=== PATIENT | female | born 1970 | race Caucasian/White ===

== ENCOUNTER 2016-07-25 10:44 | Emergency (ER) | payer OTHER ==
[~2016-07-25] VITALS: Ht 165.1 cm; Wt 136.1 kg
[~2016-07-25 10:44] MED LIST: ABILIFY 2MG2 MG PO; ABILIFY 5MG5 MG PO; ALLEGRA180 MG PO; CABERGOLINE PO; HYDROXYZINE50 MG PO; KLONOPIN0.5 MG PO; LATUDA20 MG PO; LEVOTHROID SO0.05 MG PO; PREDNISONE10 MG PO; PREDNISONE50 MG PO; PROZAC 10MG10 MG PO; ZYRTEC ALLERGY10 MG PO
[2016-07-25 11:14] VITALS: BP 133/78
--- NOTE | 2016-07-25 11:24 | ED INFLUENZA/URI COMPLAINT ---
History of Present Illness General Chief Complaint: General Adult Stated Complaint: ?BRONCHITIS Source: patient Exam Limitations: no limitations Vital Signs & Intake/Output Vital Signs & Intake/Output Vital Signs Date Time Temp Pulse Resp B/P Pulse O2 O2 Flow FiO2 Ox Delivery Rate 07/25 1143 96 07/25 1114 96.7 77 20 133/78 95 Room Air Room Air Allergies Coded Allergies: amoxicillin (Intermediate, HIVES 11/01/15) Cephalosporins (HIVES 11/01/15) Penicillins (HIVES 11/01/15) codeine (HIVES 11/01/15) sulfamethoxazole (From BACTRIM) (HIVES 11/01/15) trazodone (HIVES? 11/01/15) trimethoprim (From BACTRIM) (HIVES 11/01/15) venom-honey bee (BEE VENOM (HONEY BEE)) (SWELLING 11/01/15) Reconcile Medications Albuterol Sulfate 2.5 MG/3 ML (0.083 %) VIAL.NEB 1 Vial INH/NIKO Q4P PRN DYSPNEA Aripiprazole (Abilify) 5 MG TAB 1 TAB PO QAM MENTAL HEALTH (Reported) Aripiprazole (Abilify) 2 MG TAB 1 TAB PO BID MENTAL HEALTH (Reported) Cabergoline 0.5 MG TAB 0.5 TAB PO QMON PITUITARY ADENOMA (Reported) CETIRIZINE HCL (Zyrtec) 10 MG SGL 2 CAP PO QPM ALLERGIES (Reported) Clonazepam (Klonopin) 0.5 MG TAB 1 TAB PO BID ANXIETY Escitalopram Oxalate 10 MG TABLET 1 TAB PO DAILY MENTAL HEALTH (Reported) Fexofenadine Hydrochloride (Katty) 180 MG TAB 2 TAB PO QAM ALLERGIES ( Reported) Fluoxetine HCl (Prozac 10mg) 10 MG CAP 20 MG PO DAILY DEPRESSION (Reported) Hydroxyzine Hydrochloride (Hydroxyzine) 50 MG TAB 1 TAB PO 4 TIMES/DAY PRN ALLERGIC REACTION Levofloxacin (Levaquin) 500 MG TABLET 1 TAB PO DAILY PNEUMONIA Levothyroxine Sodium (Synthroid) 75 MCG TABLET 1 TAB PO DAILY AC THYROID ( Reported) LURASIDONE HCL (Latuda) 20 MG TAB 1 TAB PO QPM MENTAL HEALTH (Reported) Prednisone 10 MG TAB STEROID TAPER (Reported) Triage Note: PT TO ED S/P NASAL CONGESTION, COUGH YELLOW/GREEN SPUTUM, WENT TO [facility]ALK[facility] CLIN[facility] ON WED GIVEN AN INHALER, WHICH SLIGHT IMPROVEMENT. Triage Nurses Notes Reviewed? yes Onset: Gradual Duration: day(s): (FEW) Timing: recent history Severity: moderate No Modifying Factors: none Associated Symptoms: cough, shortness of breath, sinus infection HPI: This is a 46-year-old female who presents to the ER chief complaint of cough, shortness of breath, sputum production. She was seen at an urgent care a few days ago and diagnosed with bronchitis and put on an inhaler. She has used her nebulizer machine a few times at home with relief but states that she feels she should've been put on an antibiotic. Complains of yellow phlegm. Complains of subjective fevers and chills. Past History Travel History Traveled to [place] past 21 day No Medical History Any Pertinent Medical History? 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 No Review of Systems Review of Systems Constitutional: Reports: chills, fever. EENTM: Reports: nasal congestion. Respiratory: Reports: cough, short of breath, sputum production. Cardiovascular: Reports: see HPI (chest tightness). GI: Denies: abdominal pain. Genitourinary: Reports: no symptoms. Musculoskeletal: Reports: no symptoms. Skin: Reports: no symptoms. Neurological/Psychological: Reports: no symptoms. Hematologic/Endocrine: Denies: bruising, bleeding, polyuria, polydipsia. Immunologic/Allergic: Denies: splenectomy. All Other Systems: Reviewed and Negative Physical Exam Physical Exam General Appearance: well developed/nourished, alert, awake, anxious, mild distress, obese Head: atraumatic, normal appearance Eyes: Bilateral: normal appearance, PERRL, EOMI. Ears, Nose, Throat: normal ENT inspection, moist mucous membrane, hearing grossly normal, Tympanic normal, pharynx normal Neck: normal inspection, supple, full range of motion Respiratory: chest non-tender, no respiratory distress, decreased breath sounds, wheezing Cardiovascular: regular rate/rhythm Peripheral Pulses: 2+ radial (R), 2+ radial (L) Core Measures Severe Sepsis Present: No Septic Shock Present: No Progress Differential Diagnosis: ASTHMA, BRONCHITIS, uri, PNEUMONIA, SINUSITIS Plan of Care: Orders Procedure Date/time Status RT ED ORDERS 07/25 1131 Active XRY-CHEST XRAY, PA AND LATERAL 07/25 1131 Active Patient improved after DuoNeb. Chest x-ray within normal limits. ([facility] MARKS,TERRELL) Diagnostic Imaging: Viewed by Me: Radiology Read. Discussed w/RAD: Radiology Read. CXR Impression: PATIENT: BHARATH BARBA PRESENT AGE: 46 PATIENT ACCOUNT NO: [id number] : 68 LOCATION: [facility] ORDERING PHYSICIAN: TERRELL SIMON MD SERVICE DATE: 07/25/16 EXAM TYPE: RAD - XRY-CHEST XRAY , PA AND LATERAL EXAMINATION: XR CHEST CLINICAL INFORMATION: Cough and chest tightness COMPARISON: 04/14/2012. TECHNIQUE: PA and lateral views of the chest were obtained. FINDINGS: No significant abnormality is noted involving the heart , lungs, mediastinum, bony thorax, or soft tissues. IMPRESSION: Clear lungs. No focal pneumonia. DICTATED BY: BELEN MEI MD DATE/TIME DICTATED:07/25/161322 STORE SALES LEADER:ROSA ELENA DATE/TIME TRANSCRIBED:07/25/161322 CONFIDENTIAL, DO NOT COPY WITHOUT APPROPRIATE AUTHORIZATION. <Electronically signed in Other Vendor System> SIGNED BY: BELEN MEI MD 07/25/161326 Initial ED EKG: none Departure Departure Time of Disposition: 1226 Disposition: HOME OR SELF CARE Condition: Stable Clinical Impression Primary Impression: Bronchitis Referrals: BRISA ABREU MD Additional Instructions: Take your prescriptions as directed. Follow-up with your doctor in the office. Return to the ER for any changing or worsening symptoms. Departure Forms: Customer Survey General Discharge Information Prescriptions: Current Visit Scripts Levofloxacin (Levaquin) 1 TAB PO DAILY #7 TAB Albuterol Sulfate 1 Vial INH/NIKO Q4P PRN DYSPNEA #1 BOX
[2016-07-25] MEDS ORDERED: SYNTHROID75 MCG PO (12:07)
[2016-07-25] MEDS ORDERED: ESCITALOPRAM OX10 MG PO (12:07)
[2016-07-25] MEDS ORDERED: LEVAQUIN500 M1 PO (12:28)
[2016-07-25] MEDS ORDERED: ALBUTEROL2.5 MG/3 M INH/SOL (12:28)
--- NOTE | 2016-07-25 13:27 | RADIOLOGY REPORT ---
EXAMINATION: XR CHEST CLINICAL INFORMATION: Cough and chest tightness COMPARISON: 04/14/2012. TECHNIQUE: PA and lateral views of the chest were obtained. FINDINGS: No significant abnormality is noted involving the heart, lungs, mediastinum, bony thorax, or soft tissues. IMPRESSION: Clear lungs. No focal pneumonia.
== END 2016-07-25 12:30 ==
LOC: ERH 10:44
DX: J40 Bronchitis, not specified as acute or chronic (principal)
CPT/HCPCS: 1263

== ENCOUNTER 2016-12-31 01:22 | Emergency (ER) | payer OTHER ==
[~2016-12-31] VITALS: Ht 165.1 cm; Wt 116.6 kg
[~2016-12-31 01:22] MED LIST changes: +ALBUTEROL2.5 MG/3 M INH/SOL; +ESCITALOPRAM OX10 MG PO; +LEVAQUIN500 M1 PO; +SYNTHROID75 MCG PO
--- NOTE | 2016-12-31 03:34 | ED EYE COMPLAINT ---
History of Present Illness General Chief Complaint: Eye Problems Stated Complaint: " NEW CONTACT LENS WEARER" DONT KNOW IF THERE IN Source: patient Exam Limitations: no limitations Vital Signs & Intake/Output Vital Signs & Intake/Output Vital Signs Date Time Temp Pulse Resp B/P B/P Pulse O2 O2 Flow FiO2 Mean Ox Delivery Rate 12/31 0344 96.8 63 18 120/62 96 Room Air 12/31 0300 96.8 68 18 126/68 97 Room Air Allergies Coded Allergies: amoxicillin (Intermediate, HIVES 11/01/15) Cephalosporins (HIVES 11/01/15) Penicillins (HIVES 11/01/15) codeine (HIVES 11/01/15) sulfamethoxazole (From BACTRIM) (HIVES 11/01/15) trazodone (HIVES? 11/01/15) trimethoprim (From BACTRIM) (HIVES 11/01/15) venom-honey bee (BEE VENOM (HONEY BEE)) (SWELLING 11/01/15) Reconcile Medications Albuterol Sulfate 2.5 MG/3 ML (0.083 %) VIAL.NEB 1 Vial INH/NIKO Q4P PRN DYSPNEA Aripiprazole (Abilify) 5 MG TAB 1 TAB PO QAM MENTAL HEALTH (Reported) Aripiprazole (Abilify) 2 MG TAB 1 TAB PO BID MENTAL HEALTH (Reported) Cabergoline 0.5 MG TAB 0.5 TAB PO QMON PITUITARY ADENOMA (Reported) CETIRIZINE HCL (Zyrtec) 10 MG SGL 2 CAP PO QPM ALLERGIES (Reported) Clonazepam (Klonopin) 0.5 MG TAB 1 TAB PO BID ANXIETY Escitalopram Oxalate 10 MG TABLET 1 TAB PO DAILY MENTAL HEALTH (Reported) Fexofenadine Hydrochloride (Katty) 180 MG TAB 2 TAB PO QAM ALLERGIES ( Reported) Fluoxetine HCl (Prozac 10mg) 10 MG CAP 20 MG PO DAILY DEPRESSION (Reported) Gentamicin Sulfate 0.3 % DROPS 2 GTT OPH 4 TIMES/DAY infection x 7 days Hydroxyzine Hydrochloride (Hydroxyzine) 50 MG TAB 1 TAB PO 4 TIMES/DAY PRN ALLERGIC REACTION Levofloxacin (Levaquin) 500 MG TABLET 1 TAB PO DAILY PNEUMONIA Levothyroxine Sodium (Synthroid) 75 MCG TABLET 1 TAB PO DAILY AC THYROID ( Reported) LURASIDONE HCL (Latuda) 20 MG TAB 1 TAB PO QPM MENTAL HEALTH (Reported) Prednisone 10 MG TAB STEROID TAPER (Reported) Triage Nurses Notes Reviewed? yes Onset: Gradual Duration: hour(s): Timing: recent history Injury Environment: home Severity: mild, moderate Modifying Factors: Improves With: rest. Left Eye Associated Symptoms: burning, itching, pain Right Eye Associated Symptoms: burning, itching, pain HPI: 46-year-old woman, new to contact lenses, presents with bilateral eye itching and discomfort. She states that she put in her contact lenses at approximately 4 PM. When she went to sleep a few hours later, she took the contact lenses out. She awoke early this morning feeling bilateral eye irritation, redness, burning, increased tearing. She has no change in vision. She states that when she wears her glasses her vision is normal. She is uncertain if the contact lenses fell out or if there were still in her eye. She has no fever chills headache. She is otherwise well. Past History Medical History Any Pertinent Medical History? 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 No Review of Systems Review of Systems Constitutional: Reports: no symptoms. Eyes: Reports: no symptoms. Ear: Reports: no symptoms. Nose: Reports: no symptoms. Mouth: Reports: no symptoms. Throat: Reports: no symptoms. Respiratory: Reports: no symptoms. Cardiovascular: Reports: no symptoms. GI: Reports: no symptoms. Genitourinary: Reports: no symptoms. Musculoskeletal: Reports: no symptoms. Skin: Reports: no symptoms. Neurological/Psychological: Reports: no symptoms. Hematologic/Endocrine: Reports: no symptoms. Immunologic/Allergic: Reports: no symptoms. All Other Systems: Reviewed and Negative Physical Exam General Appearance: well developed/nourished, mild distress General Inspection: normal inspection Eyelid: normal inspection Conjunctiva/Sclera: see diagram, foreign material, injected Cornea: examined w/fluorescein, abrasion, fluorescein dye uptake EOM: intact Pupil: normal accommodation, normal pupil, PERRL General Inspection: normal inspection Eyelid: normal inspection Conjunctiva/Sclera: normal inspection Cornea: examined w/fluorescein, abrasion, fluorescein dye uptake EOM: intact Pupil: normal accommodation, normal pupil, PERRL Physical Exam Head: atraumatic, normal appearance Ears: Bilateral: canal normal, Tympanic normal, bleeding. Nose: normal inspection, active bleeding Mouth/Throat: normal mouth inspection, pharynx normal, dental tenderness Neck: normal inspection, supple, full range of motion Cardiovascular/Respiratory: normal breath sounds Neurologic/Psych: no motor/sensory deficits, awake, alert, oriented x 3 Skin: intact, normal color, warm/dry Progress Differential Diagnosis: corneal abrasion versus retained contact versus other Plan of Care: Touch pain was administered to both eyes. She had near complete resolution of discomfort. I was unable to visualize any contact lenses in the eye. 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 Departure Departure Disposition: HOME OR SELF CARE Condition: Stable Clinical Impression Primary Impression: Corneal abrasion due to contact lens Referrals: WADE HASSAN MD (PCP/Family) Additional Instructions: follow up with dr. lares (the eye doctor) or your own eye doctor. Departure Forms: Customer Survey General Discharge Information Prescriptions: Current Visit Scripts Gentamicin Sulfate 2 GTT OPH 4 TIMES/DAY #20 ML x 7 days Comments No corneal no contact lenses were visualized in both eyes. She felt better after application of tetracaine drops. I advocated follow-up with her eye doctor later today. I prescribed gentamicin eyedrops for corneal abrasions.
[2016-12-31] MEDS ORDERED: GENTAMICIN SULFA5 ML OPH (03:35)
[2016-12-31 03:44] VITALS: BP 120/62
== END 2016-12-31 03:54 ==
LOC: ERH 01:22
DX: H18.823 Corneal disorder due to contact lens, bilateral (principal)